=== PATIENT | male | born 1960 | race Caucasian/White ===

== ENCOUNTER 2024-01-09 09:46 | Observation (INO) | payer BC, SELFPAY ==
[2024-01-09] VITALS (10 sets, daily range): BP systolic 160–194; BP diastolic 79–97; PULSE 66–88; RESP 16–18; TEMP 36.2–36.9; O2SAT 96–99; BMI 35.9; BMI 34.0
--- NOTE | 2024-01-09 10:16 | EKG12_ITS ---
Test Reason : FALL Blood Pressure : / mmHG Vent. Rate : 072 BPM Atrial Rate : 072 BPM P-R Int : 154 ms QRS Dur : 080 ms QT Int : 390 ms P-R-T Axes : 038 029 069 degrees QTc Int : 427 ms Normal sinus rhythm Normal ECG Confirmed by Isacc Jacobs ([id number]), news editor KYLER NG ([id number]) on 01/10/2024 8:05:14 AM Referred By: Confirmed By:Isacc Jacobs
--- NOTE | 2024-01-09 10:18 | CT_ITS ---
STUDY: CTA HEAD AND NECK WITH CONTRAST REASON FOR EXAM: Male, 63 years old. Neuro deficit, acute, stroke suspected RADIATION DOSAGE (If Supplied By Facility): CTDIvol = ( 28.71 ) mGy, DLP = ( 1621.56 ) mGycm TECHNIQUE: CT angiography was performed with a multi-detector CT scanner. Data acquisition was obtained from the skull base through the vertex following intravenous administration of IV 100mL [id number]-[id number]. MIP images were reconstructed from the axial data set. Post-processing of the angiographic images was performed, with multiplanar reformation and 3D reconstruction. Individualized dose optimization techniques were used for this CT. COMPARISON: No relevant priors. FINDINGS: Normal bilateral petrous carotid arteries. There is calcified plaque formation of the right cavernous carotid artery, without a cross-sectional luminal stenosis. There is calcified plaque formation of the left cavernous carotid artery, without a cross-sectional luminal stenosis. Normal right A1 segments of the anterior cerebral artery. Normal left A1 segments of the anterior cerebral artery. Normal intact anterior communicating artery (ACOM). Normal bilateral A2 segments of the anterior cerebral arteries. Normal right M1 and M2 segments of the middle cerebral arteries, with a normal M1 bifurcation. Normal left M1 and M2 segments of the middle cerebral arteries, with a normal M1 bifurcation. Normal right posterior communicating artery (PCOM). Normal left posterior communicating artery (PCOM). Normal bilateral vertebral arteries. Normal basilar artery with a normal basilar bifurcation. The visualized bilateral superior cerebellar (SCA) arteries are normal. Normal bilateral P1, P2 and visualized P3 segments of the posterior cerebral arteries. There is no demonstrated aneurysm of the [place]. There is no demonstrated abnormality of the visualized brain. AORTIC ARCH: Normal visualized aortic arch. Normal origins of the brachiocephalic, left common carotid, and left subclavian arteries. 12.1 mm x 7.2 mm hypodense nodule in the anterior aspect of the upper pole of the right thyroid. A similar appearing 7.4 mm hypodense nodule is seen in the upper pole of the right lobe of the thyroid. RIGHT CAROTID ARTERIES: Normal right common carotid artery (CCA). Normal right common carotid bulb. There is mild atherosclerotic plaque formation of the origin of the right internal carotid artery with less than 50% cross sectional diameter stenosis. Normal visualized cervical portion of the right internal carotid artery. Normal origin of the right external carotid artery (ECA). LEFT CAROTID ARTERIES: Normal left common carotid artery (CCA). Normal left common carotid bulb. Normal origin of the left internal carotid (ICA) artery without a hemodynamically significant stenosis. Normal visualized cervical portion of the left internal carotid artery. Normal origin of the left external carotid artery (ECA). VERTEBRAL ARTERIES: Normal bilateral vertebral arteries. CT/CTA Head AND Neck W/ Contrast IMPRESSION: Minimal plaque formation at the origin of the right internal carotid artery. Electronically Signed: Charles Lees MD at 12:23 EDT ,
--- NOTE | 2024-01-09 10:18 | EDS_ITS ---
HPI History of Present Illness Chief Complaint: Fall Informant: patient Narrative Narrative: 63-year-old male was at work today and his left side started to give out to the point where he needed to find a chair and sit down, but he was unable to quick enough and fell, he states it was minor and he did not hurt himself. He is more concerned about his left side being weak, arm and leg, leg worse than the arm. In discussing more details, he states that this started on Tuesday, 3 days ago. His left foot and his left hand suddenly cramped up on him and they felt weak, it improved but his left foot never went back to normal and has been weak to some degree all weekend. He woke up at 3 AM this morning to go to the bathroom and noticed that his left arm and leg were weak, he went back to sleep hoping it would go away and get better. Then at work he was standing at his desk and noticed that the weakness became worse, without pain or numbness necessarily. This is when he then started walking and trying to find a chair and fell due to the weakness. He did not hit his head. He denies any vision changes, headaches, neck or back pain, chest or abdominal discomfort, dizziness, or trouble otherwise. He states he never sees a doctor for routine checks or health maintenance, he only goes to see someone when he is sick. Given all of this he takes no daily medications. He chews tobacco but does not smoke. [facility] Medical History Internal derangement of left knee Knee pain Strain of left knee no medical history Home Medications ?Medication ?Instructions ?Recorded ?Last Taken ?Type acetaminophen 325 mg tablet (Pain 325 mg PO Q6H PRN pain 01/09/24 01/09/24 History Relief (acetaminophen)) Allergy/AdvReac Type Severity Reaction Status Date / Time No Known Allergies Allergy Verified 01/09/24 09:47 Social History Smoking Status: Current every day smoker tobacco type: smokeless tobacco Smokeless tobacco user: snuff ROS ROS ED Constitutional Constitutional ED: Denies chills or fever(s) Eyes Eyes: Denies change in vision or diplopia ENT ENT ED: Denies rhinorrhea or sore throat Cardiovascular Cardiovascular: Denies chest pain or palpitations Respiratory/Chest Respiratory/Chest: Denies cough or dyspnea Gastrointestinal Gastrointestinal: Denies abdominal pain, diarrhea, nausea or vomiting Genitourinary Genitourinary ED: Denies dysuria or hematuria Musculoskeletal Musculoskeletal: Denies back pain or neck pain Integumentary Denies abscess or rash Neurologic Neurologic: Reports as per HPI and weakness; Denies headache(s) or paresthesias Psychiatric Psychiatric: Denies anxiety or suicidal thoughts EXAM Physical Exam Const Vital Signs: 01/09/24 09:47 01/09/24 09:58 01/09/24 10:16 Temperature 98.5 F Temperature Source Oral Pulse Rate 76 88 Respiratory Rate 18 18 Respiratory Effort Normal Respiratory Depth Normal Respiratory Pattern Normal Blood Pressure 194/81 H 168/88 H Blood Pressure Mean 118 114 Pulse Ox 99 98 98 Oxygen Delivery Method Room Air Room Air Room Air 01/09/24 10:20 01/09/24 11:46 Temperature Temperature Source Pulse Rate 81 Respiratory Rate 18 Respiratory Effort Respiratory Depth Respiratory Pattern Blood Pressure 175/97 H Blood Pressure Mean 123 Pulse Ox 98 Oxygen Delivery Method Room Air Room Air Positive well nourished and well developed General Appearance ED: well developed and NAD HEENT Reports moist mucous membranes normocephalic and atraumatic Eyes PERRL and EOMs intact bilaterally Neck full ROM and supple Resp normal respiratory effort and clear to auscultation bilaterally Cardio regular rate, regular rhythm and no murmurs GI non-tender and non-distended Auscultation: normoactive bowel sounds Palpation: soft Back/Spine no CVA tenderness General Back: other FROM Extremity normal to inspection General Extremety ED: Negative for edema, pulses abnormal or tenderness General Extremity: Negative for edema or pulses abnormal Neuro oriented x3, CN's II-XII intact bilaterally and no sensory deficits noted Neuro Narrative: Normal speech. Normal [id number] and [id number] bilaterally, but in order to perform [id number] with his right lower extremity he has to use his arm to help support the leg due to it feeling weak. However, when performing NIHSS strength testing on the right lower extremity does not drift although he is struggling to hold it up toward the end. No Odug inattention. NIHSS is 0 see attached. Sensorium / Orientation: awake and alert Motor Exam: strength 5/5 throughout Psych mental status grossly normal Skin no rashes or lesions noted and no wounds NIHSS NIHSS Initial: 1a Level of Consciousness: 0 1b LOC Questions (Score 2 if aphasic/stupor): 0 1c LOC Commands (Only score 1st attempt): 0 2 Best Gaze (If aphasic, use reflexive mvmts.): 0 3 Visual: 0 4 Facial Palsy: 0 5 Motor Arm Right (UN = amputation/fusion): 0 5 Motor Arm Left: 0 6 Motor Leg Right: 0 6 Motor Leg Left: 0 7 Limb ataxia (Only + if out of proportion): 0 8 Sensory (Aphasia/stupor=0 or 1, coma=2): 0 9 Best Language: 0 10 Dysarthria (mute, coma=2, intubated=UN): 0 11 Extinction and Inattention (only scored if +): 0 Total Score: 0 MDM MDM MDM Narrative Medical decision making narrative: This patient's blood pressure is 194/81 and he is having stroke/TIA symptoms. The symptoms have involve the left side but he seems to have more trouble with the right lower extremity right now than he does the left, even he is bewildered by this. I obtained a stroke workup and since his symptoms have waxed and waned, perform CT angiography to evaluate for LVO anyway, even though he really is not a candidate for mechanical thrombectomy if he had wanted, based simply on the timing. However in my judgment if he has an abnormal LVO, since the symptoms have waxed and waned significantly, he probably needs to be transferred for an emergent perfusion scan. CTA performed and there is no LVO. I reviewed the images and the result which I agree with. No carotid bruits, and there is insignificant vascular disease at the origin of the right ICA. Labs are unremarkable, troponin is negative his EKG shows a sinus rhythm. I am concerned about these focal subacute neurologic symptoms. Plan is for admission or further testing possible TIA/stroke. Lab Data Attestation: I reviewed the patient's lab results. Labs: Laboratory Results - last 24 hr 01/09/24 01/09/24 10:20 10:27 WBC 4.6 RBC 4.39 L Hgb 14.4 Hct 43.1 MCV 98.2 H MCH 32.8 H MCHC 33.4 RDW Std Deviation 43.8 RDW Coeff of Gabrielle 11.9 Plt Count 237 MPV 9.6 Immature Gran % (Auto) 0.400 Neut % (Auto) 54.6 Lymph % (Auto) 26.0 [place] % (Auto) 10.5 H Eos % (Auto) 7.6 H Baso % (Auto) 0.9 Absolute Neuts (auto) 2.5 Absolute Lymphs (auto) 1.19 Nucleated RBC % 0 PT 12.6 INR 0.9 APTT 24.1 Sodium 136 Potassium 4.2 Chloride 102 Carbon Dioxide 29.0 Anion Gap 5 BUN 16 Creatinine 1.20 Estim Creat Clear Calc 76.73 Est GFR (MDRD) Af Amer 79 Est GFR (MDRD) Non-Af 65 BUN/Creatinine Ratio 13.3 Glucose 132 H Calcium 9.5 Troponin I High Sens 4 POC Glucose 147 H Radiography Diagnostic Testing: Clinical Impression(s) from Imaging Studies Head/Neck CTA 01/09/24 10:18 IMPRESSION: Minimal plaque formation at the origin of the right internal carotid artery. Electronically Signed: Charles Lees MD at 12:23 EDT , Chest X-Ray 01/09/24 10:38 IMPRESSION: No acute abnormality is seen. Electronically Signed: Charles Lees MD at 11:07 EDT , Rhythm Strip Rhythm Strip: Sinus Rhythm Rate: 80 Ectopy: None EKG Initial EKG: Attestation: I personally reviewed and interpreted this EKG as follows: Interpretation: Sinus Rhythm and No Acute Injury Pattern Management Discussion w/another healthcare provider: Hospitalist Stroke Documentation Questions Stroke Team Activated: No (Greater than 24 hours of symptoms) IV Thrombolytic Administered: No (Timing) Discharge Plan Triage Chief Complaint: Fall ED Provider: Dino Rey Dx/Rx/DC Orders Clinical Impression: Acute left-sided weakness, Accelerated hypertension Prescriptions: No Action acetaminophen [Pain Relief (acetaminophen)] 325 mg tablet 325 mg PO Q6H PRN (Reason: pain) Primary Care Provider: Care Physician,No Primary Referrals: Care Physician,No Primary [Primary Care Provider] - Print Language: Moroccan Disposition Disposition: Acute Care Hospital [facility]
[2024-01-09 10:37] LABS: Absolute Lymphocyte Count 1.19 X10^3/uL (0.83-4.51); Absolute Neutrophil Count 2.5 X10^3/uL (2.0-7.7); Basophil# 0.04 X10^3/uL; Basophil% 0.9 % (0-1); Eosinophil# 0.35 X10^3/uL; Eosinophils% 7.6 % (0-5); Hematocrit 43.1 % (40-54); Hemoglobin 14.4 g/dL (13.0-16.5); Lymphocyte # 1.19 X10^3/ul (0.83-4.51); Mean Corp Hgb Conc 33.4 g/dL (32-36); Mean Corpuscular Hgb 32.8 pg (27.0-32.0); Mean Corpuscular Volume 98.2 fL (80-94); Mean Platelet Vol. 9.6 fl (6.2-12.0); Monocyte# 0.48 X10^3/uL; Monocyte% 10.5 % (0-10); NRBC Flagged by Analyzer 0 % (0-5); Neutrophil % 54.6 % (47-70); Platelet Count 237 K/mm3 (150-450); RBC Distribution Width CV 11.9 % (11.6-14.6); RBC Distribution Width SD 43.8 fl (35.1-43.9); Red Blood Count 4.39 M/mm3 (4.6-6.2); White Blood Count 4.6 K/mm3 (4.4-11.0)
--- NOTE | 2024-01-09 10:38 | RAD_ITS ---
STUDY: X-RAY CHEST REASON FOR EXAM: Male, 63 years old. Neuro deficit, acute, stroke suspected . Left arm and leg cramping. TECHNIQUE: Single AP portable view of the chest. COMPARISON: None. FINDINGS: EKG electrodes are seen. Azygos lobe in the right upper lobe. This is in normal variant. The lungs are clear. There is no demonstrated pleural abnormality. Normal size heart. Calcified hilar lymph nodes. Normal visualized pulmonary arteries. Normal visualized aortic arch and descending thoracic aorta. There are degenerative changes of the visualized thoracic spine. Normal visualized ribs, clavicles, and shoulders. There is no demonstrated abnormality of the visualized soft tissue structures of the upper abdomen. RAD/Chest 1 View IMPRESSION: No acute abnormality is seen. Electronically Signed: Charles Lees MD at 11:07 EDT ,
[2024-01-09 10:43] LABS: International Normalized Ratio 0.9; Prothrombin Time (Protime)PT. 12.6 SECONDS (11.7-14.9)
[2024-01-09 10:44] LABS: Partial Thromboplast Time 24.1 Seconds (24.1-36.2)
[2024-01-09 10:49] LABS: Bedside Glucose 147 mg/dL (74-106)
[2024-01-09 10:54] LABS: Anion Gap 5 (5-15); BUN 16 mg/dL (7-18); BUN/Creat Ratio 13.3 RATIO (10-20); Calcium,Total 9.5 mg/dL (8.5-10.1); Chloride 102 mmol/L (98-107); EST Glomerular Filtration Rate 65 mL/min (>60); Est Glom Filt Rate - Afr Amer 79 mL/min (>60); Estimated Creatinine Clearance 76.73 ml/min; Glucose 132 mg/dL (74-106); Potassium 4.2 mmol/L (3.5-5.1); Sodium Level 136 mmol/L (136-145); Troponin-I HS 4 pg/mL (3.0-78.0)
--- NOTE | 2024-01-09 14:43 | MRI_ITS ---
EXAM: MR HEAD WITHOUT INTRAVENOUS CONTRAST CLINICAL INDICATION: left sided weakness TECHNIQUE: Multiplanar and multisequence MR images of the brain were obtained without intravenous contrast. COMPARISON: CTA head and neck with contrast 01/09/2024. FINDINGS: BRAIN AND EXTRA-AXIAL SPACES: No focal signal abnormalities throughout the brain parenchyma in all pulse sequences. The ventricles and cisterns are normal. No intra- or extra-axial hemorrhage. No evidence of acute infarct. No intracranial mass or mass effect. There is preservation of the [place]/white matter interface. Posterior fossa structures are unremarkable. No hydrocephalus. SELLA: Unremarkable. Normal sella turcica, pituitary gland, infundibular stalk, optic chiasm and hypothalamus. AUDITORY SYSTEM: Unremarkable. The internal auditory canals are patent. BONES/JOINTS: Unremarkable. No discrete lytic or blastic abnormalities. SINUSES: Unremarkable as visualized. Clear. MASTOID AIR CELLS: Unremarkable as visualized. Clear. ORBITS: Unremarkable as visualized. Both globes, extraocular muscles, optic nerves and retrobulbar fat appear unremarkable. VASCULATURE: Unremarkable as visualized. Normal flow voids in the major intracranial circulation. SOFT TISSUES: Multiple signal artifacts throughout the scalp. Please correlate with direct visual inspection since there are no visible foreign bodies including micheline on CT head. MRI/Brain without Contrast IMPRESSION: Multiple signal artifacts throughout the scalp but no visible foreign bodies or micheline when correlated with CT head scan. Please correlate with physical exam. Otherwise negative MRI brain without contrast. Electronically Signed: Ryan Randall MD at 8:19 EDT ,
--- NOTE | 2024-01-09 14:43 | ECHOCS_ITS ---
Reason For Study: TIA/CVA Procedure This was a 2D Doppler, Color Flow transthoracic echocardiogram. Contrast injection was performed. The study was technically difficult. Exam performed portable in patient room. Left Ventricle Normal LV size. Left ventricular systolic function is normal. The left ventricular ejection fraction is 65 %. Stage 1 diastolic dysfunction. No regional wall motion abnormalities noted. Right Ventricle Normal RV size. Normal systolic function. Atria Normal left atrium. Normal right atrium. Bubble contrast study negative for right to left interatrial shunt. Mitral Valve There is mild mitral annular calcification. Tricuspid Valve Normal tricuspid valve. Aortic Valve Trisinus/trileaflet aortic valve. Great Vessels Normal aortic root. Pericardium/Pleural No pericardial effusion. Medication Diluted definity 2.5ml given slow IV push to enhance endocardial definition. Performed a rapid injection of agitated mix of 9 cc saline and 1cc air to assess for atrial septal defect. MMode/2D Measurements & Calculations RVDd: 3.8 cm LVOT diam: 2.2 cm Ao root diam: 3.5 cm LVOT area: 3.9 cm2 LAV(MOD-bp): 51.0 ml LVAd ap4: 33.9 cm2 LVAd ap2: 36.0 cm2 LAV(MOD-bp) Indexed: 23.3 ml/m2 LVLd ap4: 8.8 cm LVLd ap2: 9.4 cm LAV(MOD-sp2): 67.8 ml EDV(MOD-sp4): 104.7 ml EDV(MOD-sp2): 112.4 ml LAV(MOD-sp4): 37.8 ml EDV(sp4-el): 110.7 ml EDV(sp2-el): 116.9 ml LVAs ap4: 16.9 cm2 LVAs ap2: 17.9 cm2 LVLs ap4: 6.7 cm LVLs ap2: 7.6 cm ESV(MOD-sp4): 34.8 ml ESV(MOD-sp2): 34.1 ml ESV(sp4-el): 35.9 ml ESV(sp2-el): 35.9 ml EF(MOD-sp4): 66.8 % EF(MOD-sp2): 69.7 % EF(sp4-el): 67.6 % SV(MOD-sp4): 69.9 ml SV(MOD-sp2): 78.3 ml SV(sp4-el): 74.8 ml LA A4 area: 16.0 cm2 LA dimension(2D): 4.2 cm RA A4 area: 16.8 cm2 TAPSE: 2.3 cm Time Measurements MV dec time: 0.25 sec Doppler Measurements & Calculations MV E max олег: 105.8 cm/sec Lat Peak E' Олег: 11.3 cm/sec Med Peak E' Олег: 8.7 cm/sec MV A max олег: 108.4 cm/sec E/E' lat: 9.4 E/E' med: 12.1 MV E/A: 0.98 Ao V2 max: 128.6 cm/sec LV V1 max: 100.0 cm/sec MV dec slope: 415.4 cm/sec2 Ao max P.6 mmHg LV V1 max P.0 mmHg Ao V2 mean: 86.3 cm/sec LV V1 mean P.4 mmHg Ao mean P.4 mmHg LV V1 mean: 72.2 cm/sec Ao V2 VTI: 32.5 cm LV V1 VTI: 23.5 cm AV (velocity ratio): 0.72 KAMAR(I,D): 2.8 cm2 KAMAR(V,D): 3.0 cm2 SV(LVOT): 90.7 ml PA V2 max: 91.6 cm/sec PA max PG (full): 1.7 mmHg ECHO/Echo Complete W/ Contrast Interpretation Summary Normal LV size. Left ventricular systolic function is normal. The left ventricular ejection fraction is 65 %. Stage 1 diastolic dysfunction. Bubble contrast study negative for right to left interatrial shunt. Contrast injection was performed. Ordering Physician: Manuel Hidalgo Performed By: Ana Maria Blackwell RDCS
--- NOTE | 2024-01-09 16:34 | HP.PCM.HOS_ITS ---
HPI - General General Date of Admission: 01/09/24 Date of Service: 01/09/24 Chief Complaint: Transient left-sided weakness HPI Narrative BABATUNDE VIDAL, is a 63 M who presents to the emergency room at [facility] with complaints of left-sided weakness today while he was at work. Patient stated he went to stand up and fell down because he was weak on his left side. Patient relates that last Tuesday he had a spasm in his left hand and left foot-he denied any weakness at that time to this examiner however. Patient is a poor informant and is very hard to determine when his symptoms actually started-I had a discussion with the emergency room physician who felt that the start of his symptoms would be last Tuesday. The emergency room physician was not able to determine an exact time. This examiner cannot determine whether the patient was complaining of left-sided weakness over the weekend or whether it started at 3 AM this morning-patient states he awoke at that time and felt funny but was vague about whether he actually had a left- sided weakness. Physical exam in the emergency room included an NIH score of 0, patient had labs obtained, patient's CBC was unremarkable, patient's chemistry panel was unremarkable, imaging studies including a chest x-ray and a head and neck CTA were also unremarkable. Patient's EKG showed a bifascicular block. Patient will be placed in observation status on PCU, echocardiogram will be obtained, NIH scores will be obtained, patient will undergo an MRI of the brain. Patient will be seen in consultation by teleneurology. [facility] Medical History Internal derangement of left knee Knee pain Strain of left knee Home Medications ?Medication ?Instructions ?Recorded ?Last Taken ?Type acetaminophen 325 mg tablet (Pain 325 mg PO Q6H PRN pain 01/09/24 01/09/24 History Relief (acetaminophen)) Allergy/AdvReac Type Severity Reaction Status Date / Time No Known Allergies Allergy Verified 01/09/24 09:47 Family History no significant family his Surgical History no surgical history Social History Smoking Status: Never smoker Smokeless tobacco user: snuff ROS Constitutional Constitutional: Denies anorexia, change in weight, fever(s), night sweats or weakness Eyes Eyes: Denies blurry vision, change in vision, discharge from eye(s) or eye pain Cardiovascular Cardiovascular: Denies chest pain, claudication, dyspnea on exertion, edema or palpitations Respiratory/Chest Respiratory/Chest: Denies cough, hemoptysis, shortness of breath at rest or shortness of breath with exertion Gastrointestinal Gastrointestinal: Denies abdominal pain, constipation, diarrhea, hematemesis, hematochezia, melena, nausea or vomiting Genitourinary Genitourinary: Denies dysuria, hematuria, urinary frequency, urinary hesitancy, urinary incontinence or urinary urgency Musculoskeletal Musculoskeletal: Denies back pain, joint pain, joint stiffness, joint swelling, myalgias or neck pain Neurologic Neurologic: Reports focal weakness; Denies abnormal gait, abnormal speech, dizziness, headache(s), loss of vision, numbness, other visual disturbances, paresthesias, syncope or tingling Psychiatric Psychiatric: Denies anxiety, cognitive impairment, depression, irritability, mood swings or suicidal ideation Endocrine Endocrinology: Denies change in body appearance, cold intolerance, excessive sweating, heat intolerance, polydipsia or polyuria Hematologic/Lymphatic Hematologic/Lymphatic: Denies none, anemia, easy bleeding, easy bruising or lymphadenopathy Allergic/Immunologic Allergic/Immunologic: Denies rhinitis, urticaria, eczemia or asthma Vital Signs Vital Signs Vital Signs: 01/09/24 09:47 01/09/24 09:58 01/09/24 10:16 Temperature 98.5 F Temperature Source Oral Pulse Rate 76 88 Respiratory Rate 18 18 Respiratory Effort Normal Respiratory Depth Normal Respiratory Pattern Normal Blood Pressure 194/81 H 168/88 H Blood Pressure Mean 118 114 Blood Pressure Source Blood Pressure Position Blood Pressure Location Pulse Ox 99 98 98 Oxygen Delivery Method Room Air Room Air Room Air 01/09/24 10:20 01/09/24 11:46 01/09/24 13:00 Temperature Temperature Source Pulse Rate 81 73 Respiratory Rate 18 18 Respiratory Effort Respiratory Depth Respiratory Pattern Blood Pressure 175/97 H 178/93 H Blood Pressure Mean 123 121 Blood Pressure Source Blood Pressure Position Blood Pressure Location Pulse Ox 98 98 Oxygen Delivery Method Room Air Room Air Room Air 01/09/24 13:44 01/09/24 14:16 01/09/24 16:05 Temperature 97.1 F L 98.4 F Temperature Source Oral Pulse Rate 66 67 76 Respiratory Rate 18 17 16 Respiratory Effort Respiratory Depth Respiratory Pattern Blood Pressure 160/88 H 164/79 H 188/92 H Blood Pressure Mean 112 107 124 Blood Pressure Source Monitor Blood Pressure Position Semi-Fowlers Blood Pressure Location Left Arm Pulse Ox 98 98 96 Oxygen Delivery Method Room Air Room Air Weight Weight: 101.5 kg Body Mass Index (BMI) 34.0 Physical Exam Const alert, oriented x3, no apparent distress and healthy appearing General Appearance: cooperative, well kempt and well developed Orientation / Consciousness: awake, oriented to person, oriented to place and oriented to time HEENT normocephalic, head/scalp atraumatic, hearing grossly normal bilaterally and moist oral mucous membranes Eyes PERRL, EOMs intact bilaterally and conjunctivae normal Neck supple, no JVD, thyroid normal and no carotid bruits General: trachea midline Resp normal respiratory effort, no retractions, no use of accessory muscles and clear to auscultation bilaterally Auscultation: Negative for rales, rhonchi or wheezes Cardio regular rate, regular rhythm, S1 normal heart sound, S2 normal heart sound, no murmurs, no rub and no gallops GI normal to inspection, nondistended, normoactive bowel sounds, soft to palpation, non-tender and non-distended Extremity no clubbing, cyanosis or edema Skin no rashes or lesions noted General Skin Exam: no breakdown Neuro oriented x3, CN's II-XII intact bilaterally, moves all extremities, no focal motor deficits and no sensory deficits noted Sensorium / Orientation: awake and alert Speech: speech normal Psych affect normal Results Lab / Micro Data 01/09/24 10:20 01/09/24 10:20 Labs: Laboratory Results - last 24 hr 01/09/24 10:20: WBC 4.6, RBC 4.39 L, Hgb 14.4, Hct 43.1, MCV 98.2 H, MCH 32.8 H, MCHC 33.4, RDW Std Deviation 43.8, RDW Coeff of Gabrielle 11.9, Plt Count 237, MPV 9.6, Immature Gran % (Auto) 0.400, Neut % (Auto) 54.6, Lymph % (Auto) 26.0, [place] % (Auto) 10.5 H, Eos % (Auto) 7.6 H, Baso % (Auto) 0.9, Absolute Neuts (auto) 2.5, Absolute Lymphs (auto) 1.19, Nucleated RBC % 0, PT 12.6, INR 0.9, APTT 24.1, Sodium 136, Potassium 4.2, Chloride 102, Carbon Dioxide 29.0, Anion Gap 5, BUN 16, Creatinine 1.20, Estim Creat Clear Calc 76.73, Est GFR (MDRD) Af Amer 79, Est GFR (MDRD) Non-Af 65, BUN/Creatinine Ratio 13.3, Glucose 132 H, Calcium 9.5, Troponin I High Sens 4 01/09/24 10:27: POC Glucose 147 H Rhythm Strip Rhythm Strip: Sinus Rhythm Rate: 80 Ectopy: None Imaging Radiology Impression Head/Neck CTA 01/09/24 10:18 IMPRESSION: Minimal plaque formation at the origin of the right internal carotid artery. Electronically Signed: Charles Lees MD at 12:23 EDT , Chest X-Ray 01/09/24 10:38 IMPRESSION: No acute abnormality is seen. Electronically Signed: Charles Lees MD at 11:07 EDT , Echocardiogram 01/09/24 14:43 Interpretation Summary Normal LV size. Left ventricular systolic function is normal. The left ventricular ejection fraction is 65 %. Stage 1 diastolic dysfunction. Bubble contrast study negative for right to left interatrial shunt. Contrast injection was performed. Ordering Physician: Manuel Hidalgo Performed By: Ana Maria Blackwell RDCS Assessment & Plan Assessment/Plan (1) Left-sided weakness: PLAN: Plan 1. Left-sided weakness-resolved at this time, possibly secondary to TIA-patient was placed in observation status on PCU, he will have an MRI of the brain performed tomorrow, echocardiogram was ordered, patient will be placed on a statin and an 81 mg aspirin daily. Lipid profile was ordered. #2 uncontrolled hypertension-patient does not regularly go to a physician, it is unknown whether he has a diagnosis of essential hypertension, I suspect he does, this will have to be addressed before the patient is discharged home and he will most likely have to follow-up with a PCP regarding his blood pressure. Total clinical time spent by myself addressing the patient's medical issues, reviewing all of his data, and collaborating with patient's care team: 55 minutes Charges/Coding Visit Charges Inpatient E&M: 51447 Init Hosp L2
[2024-01-09] MEDS: Aspirin 81 MG TAB.CHEW PO (17:05)
[2024-01-09] MEDS: Atorvastatin Calcium 80 MG Tablet PO (21:29)
[2024-01-10] VITALS (7 sets, daily range): BP systolic 157–178; BP diastolic 73–87; PULSE 59–76; RESP 16–18; TEMP 36.5–36.8; O2SAT 95–96; BMI 34.0
[2024-01-10 07:48] LABS: Cholesterol 213 mg/dL (200); High Density Lipoprotein 37 mg/dL; Triglycerides 219 mg/dL; Very Low Density Lipoprotein 44 mg/dL (5-40)
[2024-01-10] MEDS: Aspirin 81 MG TAB.CHEW PO (08:28)
[2024-01-10] MEDS: Losartan Potassium 50 MG Tablet PO (11:52)
--- NOTE | 2024-01-10 12:07 | CON.PCM.NE_ITS ---
Assessment and Plan: Stroke Assessment/Plan BABATUNDE VIDAL is a 63 M with no significant PMH presents for evaluation of intermittent left sided weakness. Thsi has resolved. Also noticed to be hypertensive. Not a TNK or thrombectomy candidate Neurological examination shows normal ecxamination Neuroimaging shows MRI brain: Negative, CTA: negative. Echo EF 65%, LDL: 66. Likely had a TIA 1. Continue ASA 2.Continue statin 3. HTN:Continue antiHTN. Aim normotension 4. Please obtain HbA1C 5. PT, OT evaluation 6. Stroke education Thanks for the consult. I spent 70 minutes in evaluation of this patient. HPI Consult Data Date of Consult: 01/10/24 HPI Narrative HPI Narrative: BABATUNDE VIDAL, is a 63 M who presents to the emergency room at [facility] with complaints of left-sided weakness while he was at work. Patient stated he went to stand up and fell down because he was weak on his left side. He reports he has had three such similar events of left sided weakness and thus he came to ER. Each episode lasted for several minutes. Last episode yesterday. No facial droop, slured speech. Physical exam in the emergency room included an NIH score of 0. CTA head and neck are unremarkable. Patient's EKG showed a bifascicular block. [facility] Medical History Internal derangement of left knee Knee pain Strain of left knee Home Medications ?Medication ?Instructions ?Recorded ?Last Taken ?Type acetaminophen 325 mg tablet (Pain 325 mg PO Q6H PRN pain 01/09/24 01/09/24 History Relief (acetaminophen)) Allergy/AdvReac Type Severity Reaction Status Date / Time No Known Allergies Allergy Verified 01/09/24 09:47 Family History no significant family his Surgical History no surgical history Social History Smoking Status: Never smoker Smokeless tobacco user: snuff Vital Signs Vital Signs Vital Signs: 01/09/24 13:00 01/09/24 13:44 01/09/24 14:16 Temperature 97.1 F L Temperature Source Pulse Rate 73 66 67 Pulse Strength Respiratory Rate 18 18 17 Respiratory Effort Respiratory Depth Respiratory Pattern Blood Pressure 178/93 H 160/88 H 164/79 H Blood Pressure Mean 121 112 107 Blood Pressure Source Blood Pressure Position Blood Pressure Location Pulse Ox 98 98 98 Oxygen Delivery Method Room Air Room Air 01/09/24 16:05 01/09/24 19:55 01/09/24 20:05 Temperature 98.4 F 98.2 F Temperature Source Oral Oral Pulse Rate 76 88 Pulse Strength Respiratory Rate 16 16 Respiratory Effort Respiratory Depth Respiratory Pattern Blood Pressure 188/92 H 171/83 H Blood Pressure Mean 124 112 Blood Pressure Source Monitor Monitor Blood Pressure Position Semi-Fowlers Semi-Fowlers Blood Pressure Location Left Arm Right Arm Pulse Ox 96 96 96 Oxygen Delivery Method Room Air Room Air Room Air 01/09/24 22:00 01/10/24 00:05 01/10/24 04:05 Temperature 98.2 F 98.1 F Temperature Source Oral Oral Pulse Rate 64 60 Pulse Strength Respiratory Rate 18 18 Respiratory Effort Normal Non-Labored Respiratory Depth Normal Respiratory Pattern Normal Blood Pressure 170/76 H 166/73 H Blood Pressure Mean 107 104 Blood Pressure Source Monitor Monitor Blood Pressure Position Semi-Fowlers Semi-Fowlers Blood Pressure Location Right Arm Right Arm Pulse Ox 96 96 Oxygen Delivery Method Room Air Room Air Room Air 01/10/24 08:05 01/10/24 08:23 01/10/24 10:58 Temperature 97.7 F L Temperature Source Oral Pulse Rate 59 L Pulse Strength Normal (2+) Respiratory Rate 16 Respiratory Effort Respiratory Depth Respiratory Pattern Blood Pressure 178/78 H Blood Pressure Mean 111 Blood Pressure Source Monitor Blood Pressure Position Semi-Fowlers Blood Pressure Location Left Arm Pulse Ox 96 96 Oxygen Delivery Method Room Air Room Air 01/10/24 11:49 Temperature 97.8 F Temperature Source Oral Pulse Rate Pulse Strength Respiratory Rate 17 Respiratory Effort Respiratory Depth Respiratory Pattern Blood Pressure 157/82 H Blood Pressure Mean 107 Blood Pressure Source Monitor Blood Pressure Position Semi-Fowlers Blood Pressure Location Left Arm Pulse Ox 95 Oxygen Delivery Method Room Air Weight Weight: 101.5 kg Body Mass Index (BMI) 34.0 EEG Results Procedure Details EEG Procedure Details: BABATUNDE VIDAL is a 63 year old M with a past medical history of , who presents for evaluation of Electroencephalogram on DATE at TIME NIHSS NIHSS Nursing Documentation NIHSS Nursing Documentation: NIHSS: Ischemic Stroke/TIA Start: 01/09/24 16:13 Text: For PCU Patients: NIH and Neuro Check every 4 Status: Active hours, PRN and with change in RN caregiver. Naveenq: [id number] Protocol: Activity Type Activity Date Activity User E-sign Co-sign Detail Recorded Client Recorded Date Recorded By Document 01/10/24 11:49 desktop 01/10/24 11:51 01/10/24 11:49 NIH Stroke Scale [NIHSS] A score of 0 is normal or asymptomatic . Total possible score is 42. Inpatient: RN or Physician to activate a stroke alert for onset of new stroke symptoms or with NIHSS increase >/= 3 points. Following change in neurological status, NIHSS will be performed per physician order or more frequently PRN. -1a. Level of Consciousness Alert; keenly responsive -1b. LOC Questions Answers BOTH questions correctly. -1c. LOC Commands Performs both tasks correctly . -2. Best Gaze Normal -3. Visual No visual loss -4. Facial Palsy Normal symmetrical movements -5a. Left Arm No drift; arm holds 90 (or 45 ) degrees for full 10 seconds -5b. Right Arm No drift; arm holds 90 (or 45 ) degrees for full 10 seconds -6a. Left Leg No drift; leg holds 30-degree position for full 5 seconds -6b. Right Leg No drift; leg holds 30-degree position for full 5 seconds -7. Limb Ataxia Absent -8. Sensory Normal; no sensory loss -9. Best Language No aphasia; normal -10. Dysarthria Normal -11. Extinction and Inattention No abnormality -Total 0 Query Text:A score of 0 is normal or asymptomatic. Total possible score is 42 . ED: Notify Physician for NIHSS increase by > / = 3 points. Inpatient: RN or Physician to activate a stroke alert for NIHSS increase of > / = 3 points. Coma Scale [Assess] -Eye Opening Spontaneous -Motor Obeys Commands -Verbal Oriented [Total] -Coma Scale Total 15 NIHSS 1a. Level of Consciousness: Alert; keenly responsive 1b. LOC Questions: Answers BOTH questions correctly. 1c. LOC Commands: Performs both tasks correctly. 2. Best Gaze: Normal 3. Visual: No visual loss 4. Facial Palsy: Normal symmetrical movements 5a. Left Arm: No drift; arm holds 90 (or 45) degrees for full 10 seconds 5b. Right Arm: No drift; arm holds 90 (or 45) degrees for full 10 seconds 6a. Left Leg: No drift; leg holds 30-degree position for full 5 seconds 6b. Right Leg: No drift; leg holds 30-degree position for full 5 seconds 7. Limb Ataxia: Absent 8. Sensory: Normal; no sensory loss 9. Best Language: No aphasia; normal 10. Dysarthria: Normal 11. Extinction and Inattention: No abnormality Total: 0 Physical Exam Const alert, oriented x3 and no apparent distress HEENT normocephalic and head/scalp atraumatic Eyes EOMs intact bilaterally Resp normal respiratory effort Neuro Neuro Narrative: awake, alert, oriented X3 Cranial nerves 2-12 intact Power 5/5 sensation: intact no ataxia Lab / Micro Data 01/09/24 10:20 01/09/24 10:20 Labs: Laboratory Results - last 24 hr 01/10/24 06:36: Triglycerides 219 H, Cholesterol 213 H, LDL Cholesterol 132 H, V LDL Cholesterol 44 H, HDL Cholesterol 37 L Rhythm Strip Rhythm Strip: Sinus Rhythm Rate: 80 Ectopy: None Imaging Radiology Impression Head/Neck CTA 01/09/24 10:18 IMPRESSION: Minimal plaque formation at the origin of the right internal carotid artery. Electronically Signed: Charles Lees MD at 12:23 EDT , ADDENDUM: 01/09/24 1739 IMPRESSION: undefined Brain MRI 01/09/24 14:43 IMPRESSION: Multiple signal artifacts throughout the scalp but no visible foreign bodies or micheline when correlated with CT head scan. Please correlate with physical exam. Otherwise negative MRI brain without contrast. Electronically Signed: Ryan Randall MD at 8:19 EDT , Echocardiogram 01/09/24 14:43 Interpretation Summary Normal LV size. Left ventricular systolic function is normal. The left ventricular ejection fraction is 65 %. Stage 1 diastolic dysfunction. Bubble contrast study negative for right to left interatrial shunt. Contrast injection was performed. Ordering Physician: Manuel Hidalgo Performed By: Ana Maria Blackwell RDCS Active Medications Active Medications Active Medications: Current Medications Generic Name Dose Route Start Last Admin Trade Name Freq PRN Reason Stop Dose Admin Acetaminophen 650 mg 01/09/24 16:13 Acetaminophen 325 Mg Tablet PO Q6H PRN PRN Pain 1-10 Or Fever >100.7 Aspirin 81 mg 01/10/24 08:00 01/10/24 08:28 Aspirin 81 Mg Tab.Chew PO 81 mg BREAKFAST DEANN Administration Atorvastatin Calcium 80 mg 01/09/24 22:00 01/09/24 21:29 Atorvastatin Calcium 80 Mg Tablet PO 80 mg QHS DEANN Administration Hydralazine HCl 5 mg 01/09/24 16:13 Hydralazine 20 Mg/Ml Vial IV 01/10/24 16:13 Q30M PRN maintain BP parameters with HR <60 Sodium Chloride 250 mls @ 15 mls/hr 01/09/24 16:14 IV .[id number] PRN Additional IVPB Infusion Sodium Chloride 250 mls @ 15 mls/hr 01/09/24 16:14 IV .[id number] PRN Saline Flush Labetalol HCl 10 - 20 mg 01/09/24 16:13 Labetalol (Compound) 20 Mg/4 Ml Syringe IV 01/10/24 16:14 Q10M PRN PRN maintain BP parameters with HR >/=60 Losartan Potassium 50 mg 01/11/24 10:00 Losartan Potassium 50 Mg Tablet PO DAILY DEANN Protocol Ondansetron HCl 4 mg 01/09/24 16:13 Ondansetron 4 Mg/2 Ml Vial IV Q8H PRN PRN NAUSEA/VOMITING Sodium Chloride 10 - 40 ml 01/09/24 16:14 0.9% Saline Lock 10 Ml Syringe IV UD PRN SALINE FLUSH
--- NOTE | 2024-01-10 12:29 | CASEMGMT ---
SW did not complete a PHQ 9 with patient as per physician patient did not have a Stroke or TIA. Monica HWANG
--- NOTE | 2024-01-10 13:48 | PCM.DC.SUM ---
Providers Date of Admission: 01/09/24 Primary Care Physician: [facility] Consultations 01/09/24 16:13 Consult: Tele-Neurology Routine Consulting Provider: [facility] Reason for Consult: Acute Ischemic Stroke/TIA EMERGENT Consult: No MD Notified: Yes Date Notified: 01/09/24 Time Notified: 16:21 Method of Notification: Answering Service Nursing Unit Staff Notify [facility] of Tele-Neurology Consult: Yes Reason For Visit: fall Diagnosis Discharge Diagnosis (1) Left-sided weakness: Status: Acute Code(s): R53.1 - Weakness Medications at Discharge Home Medications acetaminophen 325 mg tablet (Pain Relief (acetaminophen)) 325 mg PO Q6H PRN pain 01/09/24 amlodipine 10 mg tablet 10 mg PO DAILY #30 tabs 01/10/24 aspirin 81 mg chewable tablet 81 mg PO BREAKFAST #0 tabs 01/10/24 atorvastatin 80 mg tablet 80 mg PO QHS #30 tabs 01/10/24 losartan 50 mg tablet 50 mg PO DAILY #30 tabs 01/10/24 Hospital Course Procedures 2-D Echocardiogram, EKG and - (CTA head and neck/MRI brain) Summary of Care Provided Minutes Spent on Discharge: 38 Hospital Course: Mr. Barnes is a 63-year-old white male who presented to the emergency department at [facility] on 01/09/2024 with a chief complaint of left-sided weakness that occurred today while he was at work. He stated he went to stand up and fell down because he was weak on his left side. He states that he has had similar symptoms to this previously but has not sought attention. It also happened about 1 year ago but he attributed it to riding on a train. Patient is a poor historian overall and it was difficult to ascertain exactly what has been going on. He repetitively said that he felt funny. His NIH on presentation was 0 but there was concern that he could have been having a TIA versus waxing and waning stroke symptoms and could potentially worsen so he was admitted to the telemetry floor for ongoing stroke workup. Vital signs on presentation demonstrated a temperature of 98.5, heart rate 76, respiratory 18, blood pressure was 194/81, and pulse ox was 99% on room air. His CBC was unremarkable. Coags were normal. His chemistry panel was unremarkable other than a blood glucose level of 132 which was nonfasting. His troponin was normal. CTA of the head and neck demonstrated minimal plaque formation at the origin of the right internal carotid artery but no LVO or other significant stenosis. Lipid panel was obtained and found a total cholesterol of 213/LDL 132/triglycerides 219/HDL 37. Hemoglobin A1c was obtained and found to be 6.0. Echocardiogram showed an EF of 65% with stage I diastolic dysfunction and a negative bubble study. MRI of the brain demonstrated no acute infarct. NIH remained 1. He continued to have profound elevated hypertension and is not on any medication at home. He was started on losartan 50 mg daily as well as amlodipine 10 mg daily for his blood pressure. His cholesterol was markedly elevated so we did add atorvastatin 80 mg daily as well as aspirin 81 mg daily at neurology's request and have asked him to follow-up with a primary care physician. Neurology did evaluate the patient and felt that his symptoms were consistent with a TIA. Goals of care are to optimize his risk factors and start a baby aspirin. He is currently not established with a primary care physician however they have a name of somebody who they would like to follow-up and plan on making appointment. I asked that patient and family to make an appointment to be seen as soon as availability allows on the physician schedule. I have also asked him to follow-up with neurology as an outpatient and gave him the information for Dr. Kern's office. He will call and set up an appointment to be seen at his first availability as well. Prescriptions were sent to his local pharmacy. He was able to be discharged home in stable condition on 01/10/2024. Discharge diagnoses: TIA Transient left-sided weakness-resolved Hypertension Hyperlipidemia Insulin resistance Hypertriglyceridemia Elevated blood glucose level--> hemoglobin A1c Nicotine use-snuff Obesity Weight / BMI Weight Weight: 101.5 kg Body Mass Index (BMI) 34.0 ABG / Lab / Microbiology Data 01/09/24 10:20 01/09/24 10:20 Laboratory: Laboratory Results - last 24 hr 01/10/24 06:36: Triglycerides 219 H, Cholesterol 213 H, LDL Cholesterol 132 H, VLDL Cholesterol 44 H, HDL Cholesterol 37 L Radiography Diagnostic Testing: Radiology Impression Head/Neck CTA 01/09/24 10:18 IMPRESSION: Minimal plaque formation at the origin of the right internal carotid artery. Electronically Signed: Charles Lees MD at 12:23 EDT , ADDENDUM: 01/09/24 1739 IMPRESSION: undefined Brain MRI 01/09/24 14:43 IMPRESSION: Multiple signal artifacts throughout the scalp but no visible foreign bodies or micheline when correlated with CT head scan. Please correlate with physical exam. Otherwise negative MRI brain without contrast. Electronically Signed: Ryan Randall MD at 8:19 EDT , Echocardiogram 01/09/24 14:43 Interpretation Summary Normal LV size. Left ventricular systolic function is normal. The left ventricular ejection fraction is 65 %. Stage 1 diastolic dysfunction. Bubble contrast study negative for right to left interatrial shunt. Contrast injection was performed. Ordering Physician: Manuel Hidalgo Performed By: Ana Maria Blackwell RDCS Meaningful Use Info Meaningful Use Meaningful Use Diagnoses (Choose all that apply): None applicable Ischemic Stroke Statin Dosing Therapy Reference: STATIN DOSE THERAPY REFERENCE: * Patients > 75 years receive moderate or high dose statin therapy. * Patients 75 years or YOUNGER should receive HIGH intensity statin dose unless contraindicated. You will be required to document reason for non-treatment if statin daily dose does not meet guidelines. HIGH DOSE STATIN THERAPY DAILY Atorvastatin > than or = to 40 mg Rosuvastatin > than or = to 20 mg Amlodipine + Atorvastatin > than or = to 2.5/40 mg Ezetimibe + Simvastatin 10/80 mg Simvastatin 80mg Discharge Plan Admission Admit Date/Time: 01/09/24 14:22 Primary Reason for Your Visit: Intermittent L sided weakness Attending Provider: Louisa Amanda Primary Care Provider: Care Physician,No Primary Consulting Providers: Marcelo Mccoy; Scott Pozo; Shelby Anglin; Isabella Durand; Silvia Walden; Srinivas Aponte; Gloria Grimes; Woody Ramirez; Farhat Mendoza; Dany Gomez; Gloria Mcqueen; Ozzie Joyce; Blanche Wisdom; Leonora Perla; Cielo Esquivel; Leandro Noonan; Momo Garcia; Ignacio Patel; Capri Amanda; Toni Diaz; Manuel Hidalgo Instructions Patient Instructions: ED TIA: Transient Ischemic Attack Additional Instructions / Restrictions: 1. Please follow-up with a primary care physician of your choosing and get an appointment to be seen as soon as possible after discharge 2. Neurology feels you had what is called a TIA or transient ischemic attack. See discharge information. This is not a stroke but a precursor to a stroke and if we do not control your blood pressure and your cholesterol you could potentially have a true stroke. 3. Please buy baby aspirin and take daily with food. Discharge Orders/Prescriptions Prescriptions: New aspirin 81 mg Tablet,Chewable 81 mg PO BREAKFAST Qty: 0 0RF atorvastatin 80 mg Tablet 80 mg PO QHS Qty: 30 1RF losartan 50 mg Tablet 50 mg PO DAILY Qty: 30 1RF amlodipine 10 mg tablet 10 mg PO DAILY Qty: 30 1RF Continued acetaminophen [Pain Relief (acetaminophen)] 325 mg tablet 325 mg PO Q6H PRN (Reason: pain) Referrals / Follow Up: Obed Kern MD [Non-Staff -Ordering Privileges] - See Referral Note (Call later today or tomorrow to set up an appointment to be seen at their first available. It may be sometime until they have an available appointment but that is okay) Care Physician,No Primary [Primary Care Provider] - Disposition Disposition (needs filled in before D/C Order can be placed): Home, Self Care
[2024-01-10] MEDS: amLODIPine 10 MG Tablet PO (14:26)
--- NOTE | 2024-01-10 14:41 | CASEMGMT ---
Patient has order for discharge. RN CM in to discuss needs at discharge. Patient denies needs or help at discharge. Patient had no further questions or concerns.
--- NOTE | 2024-01-10 15:15 | PHA.DC_ITS ---
Pharmacy [facility] has performed discharge medication reconciliation and counseling for this patient. 1. AMLODIPINE 10MG PO DAILY 2. ASPIRIN 81MG PO BREAKFAST 3. ATORVASTATIN 80MG PO QHS 4. LOSARTAN 50MG PO DAILY The patient's discharge medication list was reviewed for discrepancies and discrepancies were resolved. The patient was counseled on the following discharge medications and changes in medications for homegoing were reviewed. The Reason for Use, instructions for use, and potential side effects were reviewed for all new medications. The patient's questions regarding all of their medications were answered. The patient was able to verbally demonstrate an understanding of their discharge medications. Medications at Discharge Home Medications acetaminophen 325 mg tablet (Pain Relief (acetaminophen)) 325 mg PO Q6H PRN pain 01/09/24 amlodipine 10 mg tablet 10 mg PO DAILY #30 tabs 01/10/24 aspirin 81 mg chewable tablet 81 mg PO BREAKFAST #0 tabs 01/10/24 atorvastatin 80 mg tablet 80 mg PO QHS #30 tabs 01/10/24 losartan 50 mg tablet 50 mg PO DAILY #30 tabs 01/10/24
--- NOTE | 2024-01-10 15:52 | CHAPLAIN ---
Type of Pastoral Visit _x__ Initial Visit ___ Follow-up Visit ___ On-call Visit ___ General Patient Visit ___ Spiritual Assessment ___ Family Conference ___ Bereavement ___ Rapid Response ___ Code Blue ___ Other (describe below) Pastoral Care Referral From _x__ Patient ___ Family ___ Nurse ___ Physician ___ Bombsight Specialist ___ [employer] ___ Other (describe below) Sacrament/Intervention _x__ Active listening ___ Anointing ___ Jew ___ Bereavement ___ Communion _x__ Yaritza exploration ___ ___ Life review _x__ Prayer ___ Reconciliation ___ Sacrament of Sick ___ Supportive presence ___ Wedding ___ Other (describe below) Pastoral Comments patient is welcoming and expecting to be discharged this afternoon; pt is offered support and he reveals his concerns about aging and how things are changing; explored his thoughts and feelings on the changes; pt then speaks to his spiritual yaritza and ideas which he doesn't talk about to others; reflections on yaritza and belief systems; prayer is welcomed for patient
== END 2024-01-10 13:53 | disposition home or self-care (01) ==
LOC: ED 12:55 → PCU 15:13
PROVIDERS: Admitting Provider Internal Medicine; Emergency Provider Emergency Medicine; Visit Provider Internal Medicine
DX: G45.9 Transient cerebral ischemic attack, unspecified (principal); E66.9 Obesity, unspecified; R73.9 Hyperglycemia, unspecified; I10 Essential (primary) hypertension; R29.898 Other symptoms and signs involving the musculoskeletal system; E88.819 Insulin resistance, unspecified; I45.2 Bifascicular block; E78.5 Hyperlipidemia, unspecified; F17.220 Nicotine dependence, chewing tobacco, uncomplicated; Z91.81 History of falling
CPT/HCPCS: 36415; 70496; 70498; 70551; 71045; 80048; 80061; 82962; 83036; 84484; 85025; 85610; 85730; 93005; 93306; 94762; 97802; 99221; 99285; 99406; Q9957; Q9967; A4216; C8929; G0378